=== PATIENT | female | born 1950 | race Caucasian/White ===

== ENCOUNTER 2016-07-31 07:25 | Day surgery (SDC) | payer OTHER ==
[2016-07-31] MEDS ORDERED: LIDOCAINE HCL/PF 1% SDV 5ML VIAL ONE (07:56)
[2016-07-31] MEDS ORDERED: PROPOFOL 20 ML ONE ×2 (07:56)
[2016-07-31] MEDS ORDERED: SUCCINYLCHOLINE CHLORIDE 200 MG/10 ML VIAL ONE (07:59)
[2016-07-31] MEDS ORDERED: ESMOLOL HCL 10 ML ONE (07:59)
[2016-07-31 08:53] VITALS: BMI 23.7
[2016-07-31 09:56] VITALS: TEMP 98.2
[2016-07-31 12:45] VITALS: BP 105/55; PULSE 62
--- NOTE | 2016-08-01 11:35 | PATH ---
Surgical Pathology Report Patient Name: SAMIR CONRAD [facility]. Rec. #: [id number] /Age/Gender: 1950 (Age: 66) / F Account: [id number] Location: [facility]-ENDOSCOPY Taken: 07/31/2016 Received: 07/31/2016 Reported: 08/01/2016 Physicians: Guanako Cruz M.D. Specimen(s) Received A: BX STOMACH B: BX DISTAL ESOPHAGUS Clinical History Epigastric pain Gastritis, esophageal dysmotility, hiatal hernia Final Diagnosis A. STOMACH, BIOPSY: GASTRIC FUNDIC MUCOSA WITH FOCAL HYPERPLASTIC CHANGES. IMMUNOSTAIN FOR H. PYLORI IS NEGATIVE. B. DISTAL ESOPHAGUS, BIOPSY: SQUAMOUS EPITHELIUM WITH NO PATHOLOGIC CHANGES. NO INTESTINAL METAPLASIA IDENTIFIED (NO URBINA'S IDENTIFIED). Electronically Signed Preet Herring M.D. Gross Description A. Received in formalin, labeled "biopsy stomach" are 3 ni, irregular portions of soft tissue averaging 0.2 cm. in greatest dimension. The specimens are submitted in toto in one cassette. B. Received in formalin, labeled "biopsy distal esophagus" is a ni, irregular portion of soft tissue measuring 0.3 cm. in greatest dimension. The specimen is submitted in toto in one cassette. 07/31/201607/31/2016
== END 2016-07-31 11:00 | disposition home or self-care (01) ==
LOC: JASU-ENDO 07:25
PROVIDERS: ATTEND Internal Medicine Gastroenterology
PROC: 0DB68ZX Excision of Stomach, Via Natural or Artificial Opening Endoscopic, Diagnostic (ICD-10-PCS; 2016-07-31)
PROC: 0DB38ZX Excision of Lower Esophagus, Via Natural or Artificial Opening Endoscopic, Diagnostic (ICD-10-PCS; principal; 2016-07-31 08:00)
DX: K29.70 Gastritis, unspecified, without bleeding (principal); K44.9 Diaphragmatic hernia without obstruction or gangrene; K22.4 Dyskinesia of esophagus
CPT/HCPCS: 88305-TC; 88342-TC